=== PATIENT | male | born 2000 | race Hispanic/Latino ===

== ENCOUNTER 2021-11-11 13:41 | Emergency (ER) | payer OTHER, SELFPAY ==
[2021-11-11 13:42] VITALS: BP 134/76; PULSE 50; RESP 14; TEMP 36.7; O2SAT 100; BMI 25.1
[2021-11-11 14:07] VITALS: PULSE 55; O2SAT 98
--- NOTE | 2021-11-11 14:17 | DI.RAD.S_ITS ---
PROCEDURE: XR LUMBAR SPINE 2-3V INDICATIONS: acute onset of LBP TECHNIQUE: 3 views of the lumbar spine were acquired. COMPARISON: None. FINDINGS: Bones: 5 [id number] vertebrae are present. There is normal bony alignment. No vertebral body compression fractures. No suspicious bony lesions. Soft tissues: Overlying bowel gas pattern is normal. No suspicious soft tissue calcifications. IMPRESSION: No acute radiographic findings. Dictated by: Crissy Mcgovern M.D. on 11/11/2021 at 15:10 Approved by: Crissy Mcgovern M.D. on 11/11/2021 at 15:11
[2021-11-11 14:30] VITALS: PULSE 60; O2SAT 98
--- NOTE | 2021-11-11 14:46 | ED_ITS ---
HPI - Back Pain/Injury <Abigail Hall PA-C - Last Filed: 11/11/21 17:07> General Chief Complaint: Back Pain/Injury Stated Complaint: Back pain Time Seen by Provider: 11/11/21 15:20 Source: patient History of Present Illness HPI Narrative: The patient is very pleasant 21 years old male, who is enlisted in [employer], and currently training for [employer] program, was in the gym about 1245 earlier this afternoon, performing sets of leg presses using gym machine. He experienced crack in his lower spine, popping sound after which sharp excruciating pain ensued. He was able to get up with assistance and walked towards his car, however he was not able to transfer into the car to drive to near ED. He called 911 and was brought in ED by paramedics. She states he was leg pressing about 210 lb, and he did not try such heavy weight in previous exercises. He never experienced similar pain. Currently pain is subsiding 09/14. Your brain is located in midst of lumbar spine, perhaps radiating to the right side of his spine. Patient denies loss of control of his bladder or bowel movement function. He denies tingling numbness in his extremities. He denies hot or cold sensation in his extremities. He is able to bend his knees, move his feet, however transferring to sitting position is especially challenging for him. Additionally bending his right knee is difficult and triggers more pain in his lumbar spine. Related Data Allergies Allergy/AdvReac Type Severity Reaction Status Date / Time No Known Drug Allergies Allergy Verified 11/11/21 14:25 Review of Systems <Abigail Hall PA-C - Last Filed: 11/11/21 17:07> Constitutional Constitutional: Reports as per HPI and Reports system reviewed and no additional complaints, except as documented Eyes Comments: no visual changes ENT Comments: no nasal congestion, no sore throat Cardiovascular Cardiovascular: Reports system reviewed and no additional complaints, except as documented Respiratory Comments: No SOB no GARBER Gastrointestinal Comments: no change in diet , appetite, no abd pain Genitourinary Comments: no urinary symptoms no hesitancy Musculoskeletal Musculoskeletal: Reports back pain Comments: back pain as per HPI is worse when getting u[p, sitting upright , walking Integumentary/Breasts Comments: no skin lesions Neurologic Comments: no tingling numbness or burning sensation, no tremors Endocrine Comments: no excessive fatigue, no heat cold intolerance Hematologic/Lymphatic Comments: no bruising or bleeding Allergic/Immunologic Comments: no allergies to food, drugs, or environmental Patient History <Abigail Hall PA-C - Last Filed: 11/11/21 17:07> Social History (Updated 11/11/21 @ 14:37 by Abigail Hall PA-C) marital status: unmarried,single lives independently: Yes pets and animals: No education level: high school occupational status: other current occupational exposures/hazards: No leisure activities: exercise Smoking Status: Never smoker during the past year weight has: remained stable well-balanced diet: daily or most days Type(s) of exercise: weight lifting, resistance training and other duration: > 90 minutes/day Smoking Status: Never smoker alcohol intake frequency: holidays/special occasions only Substance Use Type: does not use Exam <Abigail Hall PA-C - Last Filed: 11/11/21 17:07> Initial Vital Signs Initial Vital Signs: Vital Signs Temperature 98.0 F 11/11/21 13:42 Pulse Rate 50 L 11/11/21 13:42 Respiratory Rate 14 11/11/21 13:42 Blood Pressure 134/76 11/11/21 13:42 Pulse Oximetry 100 11/11/21 13:42 Oxygen Delivery Method 11/11/21 13:42 Const Other: Alert and oriented x3 male who appears in no acute distress. He is well nourished well developed transfers with difficulty due to acute low back pain [facility] Head: normal to inspection, normocephalic and atraumatic Ears: hearing grossly normal bilaterally and external ears normal Mouth: oral mucosae normal and tongue normal Teeth and gingiva: dentition normal Eyes General: Yes appearance normal, both eyes and all related structures Conjunctivae: conjunctivae normal Sclera: sclerae normal Neck Neck: normal visual inspection and full ROM Carotids: normal carotid upstroke Chest Chest: normal inspection of the chest Resp Effort & Inspection: normal respiratory effort and symmetric chest movement Auscultation: clear to auscultation bilaterally Percussion: percussion normal Cardio Rate: bradycardic Rhythm: regular rhythm Heart Sounds: S1 normal and S2 normal 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 GI Inspection: normal to inspection Palpation: soft and no hepatosplenomegaly Percussion: normal to percussion Auscultation: normal bowel sounds Back/Spine/Pelvis Back: normal to inspection Cervical Spine: normal cervical lordosis Thoracic/Lumbar Spine: paraspinal tenderness (worse on right side ) and lumbar spinal tenderness (mid lumbar point tenderness and rt sided paraspnal muscle spasm ) Skin General: no rashes or lesions noted Neuro General: patient alert, patient awake, patient oriented x3, moves all ext remities, normal light touch, pain and propioception and no focal motor deficits Cranial Nerves: CN's II-XI intact bilaterally Gait: other (ambulate with limp due to pain on rt lumbar spine ) Sensory Exam: no sensory deficits noted DTR's: Rt Patellar: 1+ and Lt Patellar: 2+ Extrem General: normal to inspection and capillary refill normal Left lower extremity: normal to inspection and lower leg (has difficulty bending his rt leg due to pain in rt lumpar region ) Other: no cyanosis no edema ROMIE Psych Appearance: grossly normal and well kempt Mental Status: mental status grossly normal <Zachariah Rubin MD - Last Filed: 12/23/21 08:52> Initial Vital Signs Initial Vital Signs: Vital Signs Temperature 98.0 F 11/11/21 13:42 Pulse Rate 50 L 11/11/21 13:42 Respiratory Rate 14 11/11/21 13:42 Blood Pressure 134/76 11/11/21 13:42 Pulse Oximetry 100 11/11/21 13:42 Oxygen Delivery Method 11/11/21 13:42 Course <Abigail Hall PA-C - Last Filed: 11/11/21 17:07> Course Course Narrative: patient observed in ED . He was given Ketorolac, 30 mg IM and Flexeril 10 mg PO. [place] better and was able to move and ambulate. Orders Ordered: Discontinued Medications Cyclobenzaprine HCl (Cyclobenzaprine 10 Mg Tablet) 10 mg PO NOW ONE Stop: 11/11/21 14:26 Last Admin: 11/11/21 15:24 Dose: 10 mg Documented By: RB Ketorolac Tromethamine (Ketorolac 30 Mg/Ml Vial) 30 mg IM NOW ONE Stop: 11/11/21 14:26 Last Admin: 11/11/21 15:24 Dose: 30 mg Documented By: RB Vital Signs Vital signs: Vital Signs - 8 hr 11/11/21 13:42 11/11/21 14:07 11/11/21 14:30 Temperature 98.0 F Pulse Rate 50 L 55 L 60 Respiratory Rate 14 Blood Pressure 134/76 Pulse Oximetry 100 98 98 Oxygen Delivery Method Room Air 11/11/21 15:00 11/11/21 15:30 11/11/21 15:33 Temperature Pulse Rate 59 L 65 56 L Respiratory Rate Blood Pressure Pulse Oximetry 99 98 99 Oxygen Delivery Method 11/11/21 15:33 Temperature Pulse Rate Respiratory Rate Blood Pressure 123/63 Pulse Oximetry Oxygen Delivery Method <Zachariah Rubin MD - Last Filed: 12/23/21 08:52> Orders Ordered: Discontinued Medications Cyclobenzaprine HCl (Cyclobenzaprine 10 Mg Tablet) 10 mg PO NOW ONE Stop: 11/11/21 14:26 Last Admin: 11/11/21 15:24 Dose: 10 mg Documented By: RB Ketorolac Tromethamine (Ketorolac 30 Mg/Ml Vial) 30 mg IM NOW ONE Stop: 11/11/21 14:26 Last Admin: 11/11/21 15:24 Dose: 30 mg Documented By: RB Vital Signs Vital signs: Vital Signs - 8 hr 11/11/21 13:42 11/11/21 14:07 11/11/21 14:30 Temperature 98.0 F Pulse Rate 50 L 55 L 60 Respiratory Rate 14 Blood Pressure 134/76 Pulse Oximetry 100 98 98 Oxygen Delivery Method Room Air 11/11/21 15:00 11/11/21 15:30 11/11/21 15:33 Temperature Pulse Rate 59 L 65 56 L Respiratory Rate Blood Pressure Pulse Oximetry 99 98 99 Oxygen Delivery Method 11/11/21 15:33 Temperature Pulse Rate Respiratory Rate Blood Pressure 123/63 Pulse Oximetry Oxygen Delivery Method MDM - Back Pain/Injury <Abigail Hall PA-C - Last Filed: 11/11/21 17:07> Differential Diagnosis Differential diagnosis: Likely strain of lumbar region Imaging Data lumbar x ray: Radiologist's Impression: PROCEDURE:? XR LUMBAR SPINE 2-3V ? INDICATIONS:? acute onset of LBP ? TECHNIQUE:? 3 views of the lumbar spine were acquired.? ? COMPARISON:? None. ? FINDINGS:? ? Bones:? 5 [id number] vertebrae are present.? There is normal bony alignment.? No vertebral body compression fractures.? No suspicious bony lesions.? ? Soft tissues:? Overlying bowel gas pattern is normal.? No suspicious soft tissue calcifications.? ? ? IMPRESSION:? No acute radiographic findings. ? ? Dictated by: Crissy Mcgovern M.D. on 11/11/2021 at 15:10 ? ? Approved by: Crissy Mcgovern M.D. on 11/11/2021 at 15:11 ? MDM Narrative Medical decision making narrative: 21 yo male sustained sprain and strain of Lumbar spine while vigorously exercising . Patient's imaging studies were essentially normal, hie is neurologically intact, he achieved relief from NSAIDS and muscle relaxant. recommend to continue with NSAID, Flexeril and rest, seek attention with worsening symptoms. ED precuations discussed with patient, he expressed understanding. Discharge Plan Departure Patient Disposition: Home Clinical Impression: Acute back pain Instructions: DI for Back Strain or Sprain Activity Restrictions/Additional Instructions: You were evaluated in the emergency department for acute lower back pain. You were diagnosed with lumbar muscle strain, sprain and acute muscle spasm. Lumbar x-ray demonstrated no acute findings. Recommendations are to take nonsteroidal anti-inflammatory drugs such as ibuprofen, muscle relaxant, rest, use heat compresses. Once the pain subsides, recommend self guided physical therapy. Return to ED if worsening tingling numbness in lower extremity occurs,urinary problems, loss of bowel or bladder control occurs, or worsening pain. Stand Alone Forms: Work Release Note Visit Report Forms: Patient Portal/API <Zachariah Rubin MD - Last Filed: 12/23/21 08:52> Cosign ED Attending Cosdaniellaature Attestation: I was immediately available for consultation of this patient was seen and evaluated by the APC in the department.
[2021-11-11 15:00] VITALS: PULSE 59; O2SAT 99
[2021-11-11] MEDS: CYCLOBENZAPRINE 10 MG TABLET PO (15:24)
[2021-11-11] MEDS: KETOROLAC 30 MG/ML VIAL IM (15:24)
[2021-11-11 15:30] VITALS: PULSE 65; O2SAT 98
[2021-11-11 15:33] VITALS: BP 123/63; PULSE 56; O2SAT 99
== END 2021-11-11 15:50 | disposition home or self-care (01) ==
PROVIDERS: Emergency Provider Physician Assistant Medical
DX: S33.5XXA Sprain of ligaments of lumbar spine, initial encounter (principal); S39.012A Strain of muscle, fascia and tendon of lower back, initial encounter; X50.0XXA Overexertion from strenuous movement or load, initial encounter
CPT/HCPCS: 72100; 96372; 99283; J1885